=== PATIENT | male | born 1970 | race Two or more races ===

== ENCOUNTER → 2019-12-20 | Outpatient (CLI) | payer OTHER ==
[2019-12-21 15:25] LABS: RUBEOLA (MEASLES) IGG 16.6 AU/mL (Immune >16.4)
== END | disposition home or self-care (01) ==
LOC: MSR 10:26
PROVIDERS: ATTEND Internal Medicine
DX: Z02.1 Encounter for pre-employment examination (principal); R76.11 Nonspecific reaction to tuberculin skin test without active tuberculosis
CPT/HCPCS: 86706; 86735; 86762; 86765; 86787; 36415-L1; 36415-TC; 71045-TC

== ENCOUNTER 2020-12-29 14:28 | Emergency (ER) | payer OTHER ==
[~2020-12-29] VITALS: Ht 177.8 cm; Wt 90.9 kg
[2020-12-29] MEDS ORDERED: PERTUSS(ACELL),DIPH,TET VAC/PF 0.5 ML SYRINGE IM. ONE (15:00)
[2020-12-29] MEDS ORDERED: LIDOCAINE 1%/EPI 1:200,000/PF 10 ML VIAL PERC ONE (15:15)
[2020-12-29 15:23] VITALS: BP 136/76
[2020-12-29] MEDS ORDERED: BACITRACIN 0.9 GM PACKET OINTMENT TP ONE (15:45)
== END 2020-12-29 15:58 | disposition home or self-care (01) ==
LOC: EMS 14:31
DX: S61.412A Laceration without foreign body of left hand, initial encounter (principal)
CPT/HCPCS: 12001; 90471; 90715; 99283; J3490

== ENCOUNTER → 2021-10-13 | Outpatient (CLI) | payer OTHER | END | disposition home or self-care (01) | LOC: LABMN 23:19 | DX: Z20.822 Contact with and (suspected) exposure to COVID-19 (principal) | CPT/HCPCS: 87426; U0003 ==

== ENCOUNTER 2022-04-02 20:37 | Emergency (ER) | payer OTHER ==
[~2022-04-02] VITALS: Ht 188 cm; Wt 113.2 kg
[2022-04-02 20:55] VITALS: BP 129/75
== END 2022-04-02 21:00 | disposition home or self-care (01) ==
LOC: EMS 20:40
DX: M67.431 Ganglion, right wrist (principal)
CPT/HCPCS: 99283